=== PATIENT | male | born 1985 | race Caucasian/White ===

== ENCOUNTER 2018-08-18 09:04 | Emergency (ER) | payer OTHER ==
[~2018-08-18] VITALS: Ht 170.2 cm; Wt 108.9 kg
[~2018-08-18 09:04] MED LIST: PHENERGAN 25 MG25 M1 PO
[2018-08-18] MEDS ORDERED: TYLENOL325 MG PO (09:17)
[2018-08-18] MEDS ORDERED: ULTRAM 50MG TAB50 MG PO (09:59)
[2018-08-18] MEDS ORDERED: FLEXERIL PO (09:59)
[2018-08-18 10:08] VITALS: BP 161/88
== END 2018-08-18 10:09 | disposition home or self-care (01) ==
LOC: M.ERS 09:04
DX: M54.5 Low back pain (principal); Z88.0 Allergy status to penicillin